=== PATIENT | male | born 1995 | race African-American/Black ===

== ENCOUNTER 2019-10-29 00:49 | Emergency (ER) | payer OTHER ==
[~2019-10-29] VITALS: Ht 170.2 cm; Wt 70.9 kg
[2019-10-29 00:56] VITALS: TEMP 98.4
[2019-10-29 03:15] LABS: COLLECTION METHOD CLEAN CATCH
[2019-10-29 03:21] LABS: MUCOUS Present /lpf; PH 5 (5-8); SQUAMOUS EPITHELIAL 0-2 /hpf; URINE APPEARANCE Clear; URINE BACTERIA None Seen /hpf; URINE BILIRUBIN Negative (NEGATIVE); URINE BLOOD Negative (NEGATIVE); URINE COLOR Yellow; URINE GLUCOSE Negative (NEGATIVE); URINE KETONE Negative (NEGATIVE); URINE LEUKOCYTE ESTERASE Negative (NEGATIVE); URINE NITRATE Negative (NEGATIVE); URINE PROTEIN(semi-quant) Negative (NEGATIVE); URINE RBC 0-2 /hpf; URINE UROBILINOGEN Negative (NEGATIVE)
[2019-10-29] MEDS ORDERED: CEPHALEXIN500 M1 PO (03:44)
[2019-10-29 04:01] VITALS: BP 148/89; PULSE 83
== END 2019-10-29 04:00 | disposition home or self-care (01) ==
LOC: COL.ER 00:49
PROVIDERS: Emergency Medicine
DX: L04.9 Acute lymphadenitis, unspecified (principal); K52.9 Noninfective gastroenteritis and colitis, unspecified; Z90.79 Acquired absence of other genital organ(s)